=== PATIENT | female | born 1960 | race Caucasian/White ===

== ENCOUNTER 2017-04-22 20:58 | Emergency (ER) | payer OTHER ==
[~2017-04-22] VITALS: Ht 154.9 cm; Wt 60.3 kg
--- NOTE | 2017-04-22 22:00 | NUR ---
PT AMBULATORY TO ER BED 2. PT BIB SELF C/O R FOOT PAIN X 2 WEEKS. VSS/RESP EVEN UNLABORED/NAD NOTED/SKIN WARM AND DRY/AFEBRILE/AOX4. AWAITING MD WAGGONER.
--- NOTE | 2017-04-22 22:08 | NUR ---
AT BEDSIDE FOR EXAM.
[2017-04-22] MEDS ORDERED: HALOPERIDOL LACTATE INJ 5 MG/ML VIAL ONE (22:55)
[2017-04-22] MEDS ORDERED: LORAZEPAM INJ 2 MG/ML VIAL ONE (22:56)
--- NOTE | 2017-04-22 23:20 | NUR ---
TECH AT BEDSIDE FOR VENOUS DUPLEX.
--- NOTE | 2017-04-22 23:42 | NUR ---
Patient discharged to home in stable condition. Written and verbal after care instructions given. Patient verbalizes understanding of instruction. Patient ambulatory with a steady gait.
[2017-04-22 23:43] VITALS: BP 133/84
== END 2017-04-22 23:43 | disposition home or self-care (01) ==
LOC: ER 21:01
DX: L03.115 Cellulitis of right lower limb (principal)
CPT/HCPCS: 93971; 99284; A4606; Z7610; J1630; J2060

== ENCOUNTER 2018-06-24 21:27 | Emergency (ER) | payer OTHER ==
[~2018-06-24] VITALS: Ht 152.4 cm; Wt 68.3 kg
[2018-06-24 21:33] VITALS: BP 136/76
== END 2018-06-24 22:30 | disposition home or self-care (01) ==
LOC: ER 21:30
DX: N60.01 Solitary cyst of right breast (principal)